=== PATIENT | male | born 1965 | race African-American/Black ===

== ENCOUNTER 2021-08-14 16:11 | Emergency (ER) | payer OTHER ==
[~2021-08-14] VITALS: Ht 167.6 cm; Wt 75.0 kg
[2021-08-14] MEDS ORDERED: HYDROCODONE/ACETAMINOPHEN 10/325MG TABLET PO ONE (20:30)
[2021-08-14] MEDS ORDERED: IBUPROFEN 600MG TABLET PO ONE (20:30)
[2021-08-14] MEDS ORDERED: LIDOCAINE HCL 1% 20ML VIAL (Pyxis) INJ INFIL ONE (20:30)
[2021-08-14] MEDS ORDERED: TETANUS, DIPHTHERIA, PERTUSSIS VAC/PF 0.5ML (>10YR OLD) IM ONE (20:30)
[2021-08-14 20:36] VITALS: BP 126/76
[2021-08-14] MEDS ORDERED: NAPR-681 MT (20:55)
== END 2021-08-14 21:00 | disposition home or self-care (01) ==
LOC: ER 16:11
DX: S91.012A Laceration without foreign body, left ankle, initial encounter (principal); W26.8XXA Contact with other sharp object(s), not elsewhere classified, initial encounter; Y93.89 Activity, other specified; V00.842A Pedestrian on standing electric scooter colliding with stationary object, initial encounter; Y92.480 Sidewalk as the place of occurrence of the external cause
CPT/HCPCS: 12002; 90471; 90715; 99283; J3490